=== PATIENT | female | born 1975 | race Caucasian/White ===

== ENCOUNTER 2017-01-22 20:44 | Emergency (ER) | payer OTHER ==
[2017-01-22 20:56] VITALS: BP 138/90; PULSE 52; TEMP 98.3; BMI 34.5
--- NOTE | 2017-01-22 21:02 | PDOC ---
History of Present Illness - General History Source: Patient Exam Limitations: No Limitations - History of Present Illness Initial Comments: 01/22/17 21:38 The patient is a 41 year old female, with a significant past medical history of CVA(s/p preeclamptic ), who presents to the emergency department with left greater toe pain and discharge for approximately 3 days. The patient reports she has noted purulent discharge, erythema, and associated pain from the left greater toe. Patient suspects her pain and discharge are due to an ingrown toenail. Patient denies any trauma or injury to her left foot or greater toe. Patient reports she recently had a nerve simulation test done on her left leg s/p CVA in March 2016. As per , patient has been using a foot brace and orthopedic sneakers since her stroke. Patient denies any recent fever, chills, headache, or dizziness. She denies any toe numbness, tingling, or ecchymosis. She denies any recent travel or sick contacts. Allergies: NKDA Past Surgical History: None reported Social History: Non smoker. No ETOH or recreational drug use. PCP: Dr. Serrano <Rosalinda Felix - Last Filed: 01/22/17 21:41> <Virgen Yip - Last Filed: 01/23/17 05:58> - General Chief Complaint: Ingrown toenail Stated Complaint: INGROWN TOENAIL Time Seen by Provider: 01/22/17 20:46 Past History <Rosalinda Felix - Last Filed: 01/22/17 21:41> - Past Medical History CVA: Yes COPD: No - Suicide/Smoking/Psychosocial Hx Smoking History: Never smoked Have you smoked in the past 12 months: No Information on smoking cessation initiated: No Hx Alcohol Use: No Drug/Substance Use Hx: No Substance Use Type: None <Virgen Yip - Last Filed: 01/23/17 05:58> - Past Medical History Allergies/Adverse Reactions: Allergies Allergy/AdvReac Type Severity Reaction Status Date / Time No Known Allergies Allergy Verified 01/22/17 20:48 Home Medications: Ambulatory Orders Baclofen 10 mg PO HS 01/22/17 Clindamycin HCl [Cleocin HCl] 300 mg PO TID #15 capsule 01/22/17 Diazepam [Valium] 1 mg PO DAILY 01/22/17 Nortriptyline HCl [Pamelor -] 10 mg PO HS 01/22/17 Review of Systems - Review of Systems Able to Perform ROS?: Yes Comments:: 01/22/17 21:38 CONSTITUTIONAL: Absent: fever, no chills, no fatigue EYES: Absent: visual changes ENT: Absent: ear pain, no sore throat CARDIOVASCULAR: Absent: chest pain, no palpitations RESPIRATORY: Absent: cough, no SOB GI: Absent: abdominal pain, no nausea, no vomiting, no constipation, no diarrhea GENITOURINARY: Absent: dysuria, no frequency, no hematuria MUSCULOSKELETAL: Present: left greater toe pain/erythema/discharge/ingrown toenail Absent: back pain, no arthralgia, no myalgia SKIN: Absent: rash NEURO: Absent: headache <Rosalinda Felix - Last Filed: 01/22/17 21:41> *Physical Exam - Vital Signs Last Vital Signs Temp Pulse Resp BP Pulse Ox 98.3 F 52 L 16 138/90 98 01/22/17 20:50 01/22/17 20:50 01/22/17 20:50 01/22/17 20:50 01/22/17 20:50 - Physical Exam Comments: 01/22/17 21:41 GENERAL: The patient is awake, alert, and fully oriented, in no acute distress. HEAD: Normal with no signs of trauma. EYES: Pupils equal, round and reactive to light, extraocular movements intact, sclera anicteric, conjunctiva clear. EXTREMITIES: Mild tenderness, moderate edema and erythema to the periungual area of the left great toe, medial aspect more edematous than the lateral aspect. Small amount of clear discharge present medially, but no fluctuance, deformities, or ecchymosis. Minimal erythema and edema to the periungual area of the right great toe. NEUROLOGICAL: Left lower extremity and left upper extremity weakness . Dysarthria. PSYCH: Normal mood, normal affect. SKIN: Warm, Dry, normal turgor, no rashes or lesions noted. <Rosalinda Felix - Last Filed: 01/22/17 21:41> - Vital Signs Last Vital Signs Temp Pulse Resp BP Pulse Ox 98.3 F 52 L 16 138/90 98 01/22/17 20:50 01/22/17 20:50 01/22/17 20:50 01/22/17 20:50 01/22/17 20:50 <Virgen Yip - Olu Filed: 01/23/17 05:58> Procedures - Additional Procedures Progress: Left great toe prepped using ethanol/Hibiclens and sterilely draped. Digital block performed with 2.5 mL total 1% lidocaine without epinephrine. Once local anesthesia was adequate, portion of the distal aspect of the toenail gently from the nail bed and proximal fold. Small sharp scissors used to remove remove 3mm by 3 mm segment of distal nail. Sterile applicator used to apply Replens ointment to the area of the nailbed exposed. This was followed by sterile dry gauze, taped to the distal portion of the toe. <Virgen Yip Filed: 01/23/17 05:58> Progress Note - Progress Note Progress Note: Documentation has been prepared under my direction and personally reviewed by me in its entirety. I attest that this documented accurately reflects all work, treatment, procedures and medical decision making performed by me. <Virgen Yip Last Filed: 01/23/17 05:58> Medical Decision Making - Medical Decision Making As noted above, this 41-year-old woman, s/p acute intracerebral bleed earlier this year presents with edematous/erythematous/painful left great toe. No trauma to area noted. No previous history of ingrown toenail. Exam as noted As per procedure note, portion of toenail in the medial proximal fold removed. Bacitracin ointment applied to area of the nailbed where toenail fragment was removed. Dry sterile dressing applied. Patient will be treated for her surrounding cellulitis with clindamycin 300 mg and course of clindamycin 300 mg 3 times a day for 5 days will be transmitted to the pharmacy. More definitive toenail revision should be performed by eye physician. Dr. Mora' referral information will be given to the patient and her . Meanwhile, the foot should be elevated as much as possible <Virgen Yip - Olu Filed: 01/23/17 05:58> *DC/Admit/Observation/Transfer - Attestations Scribe Attestion: 01/22/17 21:41 Documentation prepared by Rosalinda Felix, acting as medical assistant cardiology for Virgen Yip MD. <Rosalinda Felix - Last Filed: 01/22/17 21:41> <Virgen Yip - Last Filed: 01/23/17 05:58> Diagnosis at time of Disposition: Ingrown toenail of left foot with infection - Discharge Dispostion Disposition: HOME Condition at time of disposition: Stable - Prescriptions Prescriptions: Clindamycin HCl [Cleocin HCl] 300 mg PO TID #15 capsule - Referrals Referrals: Abbey Serrano MD [Primary Care Provider] - Jimmy Mora MD [Staff Physician] - Call tomorrow - Patient Instructions Printed Discharge Instructions: DI for Infected Ingrown Toenail Additional Instructions: Keep left foot elevated as much as possible Keep bandage on left great toe until seen by eye physician Call ' (eye physician) office tomorrow morning to make arrangement for follow-up Clindamycin 300 mg 3 times a day for 5 days No physical therapy/rehabilitation for the next 5 days Return to ER if pain/swelling worsens or fever develops - Post Discharge Activity
[2017-01-22] MEDS ORDERED: CLINDAMYCIN HCL 300 MG CAPSULE PO ONE (21:53)
[2017-01-22] MEDS ORDERED: CLINDAMYCIN HCL 150 MG CAPSULE (FP) ONE (21:54)
== END 2017-01-22 22:08 | disposition home or self-care (01) ==
LOC: FER 20:44
DX: L60.0 Ingrowing nail (principal); L08.9 Local infection of the skin and subcutaneous tissue, unspecified; Z86.73 Personal history of transient ischemic attack (TIA), and cerebral infarction without residual deficits
CPT/HCPCS: 87070; 87186; 87205; 99281-25